=== PATIENT | female | born 1955 | race Asian ===

== ENCOUNTER 2021-04-06 11:43 | Emergency (ER) | payer OTHER ==
[~2021-04-06] VITALS: Ht 152.4 cm; Wt 62.6 kg
[2021-04-06 11:50] VITALS: BP 148/98
--- NOTE | 2021-04-06 12:21 | NUR ---
PT AMBULATED TO ER BED 8.
--- NOTE | 2021-04-06 12:29 | NUR ---
DR. JAMES AT PT BEDSIDE FOR FURTHER EVALUATION.
--- NOTE | 2021-04-06 12:42 | NUR ---
PT TAKEN TO CT VIA RDESEAN.
--- NOTE | 2021-04-06 12:48 | NUR ---
PT TAKEN TO ER BED 8 VIA SUYAPA.
[2021-04-06] MEDS ORDERED: FLONAS NS (13:19)
[2021-04-06] MEDS ORDERED: AMOX1TAB8 PO (13:19)
--- NOTE | 2021-04-06 13:39 | NUR ---
66 Y/O F BIB DAUGHTER FROM HOME, C/O NEW ONSET OF FARRELL, CONSISTENT NOSEBLEEDS FOR THE PAST FEW YEARS (UNABLE TO SPECIFY) AND NAUSEA. DENIES VOMITING AND DIARRHEA; SKIN IS PINK/WARM/DRY; AAOX4 WITH EVEN AND STEADY GAIT; LUNGS CLEAR BL; HR EVEN AND REGULAR; PT DENIES ANY FEVER, CP, SOB, OR COUGH AT THIS TIME; PATIENT STATES PAIN OF 7/10 AT THIS TIME; PATIENT POSITIONED FOR COMFORT; HOB ELEVATED; BEDRAILS UP X2; BED DOWN. ER MD MADE AWARE OF PT STATUS. PMH: NOSEBLEEDS, HTN, HYPERLIPIDEMIA NKA MED: FLONASE
--- NOTE | 2021-04-06 13:39 | NUR ---
Patient discharged with v/s stable. Written and verbal after care instructions given and explained. Patient alert, oriented and verbalized understanding of instructions. Ambulatory with DAUGHTER to car. All questions addressed prior to discharge. ID band removed. Patient advised to follow up with PMD. Rx of FLUTICASONE, AMOXICILLIN/POTASSIUM CLAV given. Patient educated on indication of medication including possible reaction and side effects. Opportunity to ask questions provided and answered.
[2021-04-06 13:40] VITALS: BP 148/98
== END 2021-04-06 13:40 | disposition home or self-care (01) ==
LOC: MED 11:43
DX: J32.0 Chronic maxillary sinusitis (principal); E03.9 Hypothyroidism, unspecified; Z79.899 Other long term (current) drug therapy; Z98.890 Other specified postprocedural states
CPT/HCPCS: 70450; 99284

== ENCOUNTER 2022-06-24 16:43 | Emergency (ER) | payer MEDICARE, OTHER ==
[~2022-06-24] VITALS: Ht 147.3 cm; Wt 61.2 kg
[~2022-06-24 16:43] MED LIST: AMOX1TAB8 PO; FLONAS NS
[2022-06-24 17:06] VITALS: BP 166/86
[2022-06-24] MEDS ORDERED: ACET-10509 PO (19:03)
[2022-06-24 19:10] VITALS: BP 166/86
--- NOTE | 2022-06-24 19:10 | NUR ---
Patient discharged with v/s stable. Written and verbal after care instructions given and explained. Patient verbalized understanding. Ambulatory with steady gait. All questions addressed prior to discharge. Advised to follow up with PMD. dx by roxie
== END 2022-06-24 19:10 | disposition home or self-care (01) ==
LOC: MED 16:43
DX: S00.01XA Abrasion of scalp, initial encounter (principal); M54.2 Cervicalgia; M25.511 Pain in right shoulder; M25.512 Pain in left shoulder; M54.50 Low back pain, unspecified; I10 Essential (primary) hypertension; E03.9 Hypothyroidism, unspecified; E78.00 Pure hypercholesterolemia, unspecified; Z79.2 Long term (current) use of antibiotics; Z79.899 Other long term (current) drug therapy; W01.198A Fall on same level from slipping, tripping and stumbling with subsequent striking against other object, initial encounter; Y92.009 Unspecified place in unspecified non-institutional (private) residence as the place of occurrence of the external cause; Y93.89 Activity, other specified; Y99.8 Other external cause status
CPT/HCPCS: 70450; 72100; 72125; 72170; 73030; 99284

== ENCOUNTER 2022-12-22 00:45 | Emergency (ER) | payer MEDICARE, OTHER ==
[~2022-12-22] VITALS: Ht 147.3 cm; Wt 63.0 kg
[~2022-12-22 00:45] MED LIST changes: +ACET-10509 PO
[2022-12-22 00:58] VITALS: BP 146/80; PULSE 51; RESP 18; TEMP 97.5; O2SAT 100
--- NOTE | 2022-12-22 01:03 | NUR ---
PT TO THE BATHROOM FOR URINE COLLECTION.
--- NOTE | 2022-12-22 03:27 | NUR ---
pt ambulated to bed 2 with family member.
--- NOTE | 2022-12-22 03:30 | NUR ---
67yo f with cc of 10/10 epigastric pain that radiates that radiates to the back associated with nausea and vomiting. denies allergy. denies trauma. pmhx: htn, high cholesterol.
--- NOTE | 2022-12-22 03:30 | NUR ---
pt resting on bed, A/Ox4. not in distress. on monitor. placed on moderate high back rest. call light within reach, pt instructed on how to use call light, pt returned demonstration. all needs met at this time. bed locked in lowest position, side rails x2 for safety
--- NOTE | 2022-12-22 03:33 | NUR ---
ermd at bedside
[2022-12-22] MEDS ORDERED: DICYCLOMINE HCL LIQUID 20 MG, ALUMINUM HYD/MAG/SIMETHICONE 30 ML, LIDOCAINE VISCOUS 2% ... PO ONE ×3 (03:40)
[2022-12-22 03:54] LABS: APPEARANCE,URINE CLEAR (CLEAR); BILIRUBIN,URINE NEGATIVE (NEGATIVE); BLOOD, URINE NEGATIVE (NEGATIVE); COLOR,URINE YELLOW (YELLOW); LEUKOCYTE ESTERASE ,URINE TRACE (NEGATIVE); NITRITE, URINE NEGATIVE (NEGATIVE); PH,URINE 6.5 (5.0-9.0); UGLUCOSE NEGATIVE (NEGATIVE)
[2022-12-22 03:58] LABS: BASOPHILS % (AUTO) 0.2 % (0.0-2.0); EOSINOPHILS % (AUTO) 0.2 % (0.0-4.0); HEMATOCRIT 40.9 % (36-48); HEMOGLOBIN 13.8 g/dL (12.0-16.0); LYMPHOCYTES # (AUTO) 0.8 K/uL (2.5-16.5); LYMPHOCYTES % (AUTO) 8.9 % (20.5-51.1); MEAN CORPUSCULAR HEMOGLOBIN 31 pg (27-31); MEAN CORPUSCULAR HGB CONC 34 g/dL (33-37); MEAN CORPUSCULAR VOLUME 92.7 fL (80-94); MONOCYTES # (AUTO) 0.4 K/uL (0.8-1.0); MONOCYTES % (AUTO) 4.2 % (1.7-9.3); NEUTROPHILS # (AUTO) 7.4 K/uL (1.8-7.7); NEUTROPHILS % (AUTO) 86.5 % (42.2-75.2); PLATELET COUNT (AUTO) 186 K/uL (140-450); RED BLOOD CELL COUNT(AUTO) 4.42 MIL/uL (4.20-5.40); WHITE BLOOD COUNT (AUTO) 8.5 K/uL (4.8-10.8)
[2022-12-22] MEDS ORDERED: ALUMINUM HYD/MAG/SIMETHICONE 30 ML UDC ONE (03:58)
[2022-12-22] MEDS ORDERED: DICYCLOMINE HCL LIQUID 10 MG/5 ML UDC ONE (03:58)
[2022-12-22 04:14] LABS: ALBUMIN 4.3 g/dL (3.4-5.0); ANION GAP 14.7 (8-16); CARBON DIOXIDE 26.4 mmol/L (21-32); CHLORIDE 102 mmol/L (98-107); CREATININE 0.6 mg/dL (0.6-1.3); GFR ARICAN-AMERICAN 128 mL/min (>90); GLUCOSE 139 mg/dL (74-106); LIPASE 174 U/L (73-393); POTASSIUM 4.1 mmol/L (3.5-5.1); SODIUM SERUM 139 mmol/L (136-145); TOTAL BILIRUBIN 0.8 mg/dL (0.0-1.0); UREA NITROGEN, BLOOD 17 mg/dL (7-18)
[2022-12-22 05:12] LABS: RBC,URINE 0-5 /HPF (0-5)
[2022-12-22 05:20] LABS: ASPARTATE AMINOTRANSFERASE 358 U/L (15-37)
[2022-12-22 05:47] VITALS: TEMP 97.6
--- NOTE | 2022-12-22 07:19 | NUR ---
Pt report given to jose eduardo kumar. Transfer of care at this time. jose eduardo kumar verbalized understanding and no further question
--- NOTE | 2022-12-22 07:19 | NUR ---
REPORT RECEIVED FROM ABHI MARTINEZ. ASSUMED CARE AT THIS TIME
--- NOTE | 2022-12-22 07:32 | NUR ---
Note lacey in EDM - 12/22/22 at 0733 by PHSEP pt awake and at rest in supine. denies pain at this time. on reading instructor. bed at lowest position, bed rails upx2. call light within reach. mom at bedside
--- NOTE | 2022-12-22 07:33 | NUR ---
pt awake and at rest in supine. denies pain at this time. on price clerk. bed at lowest position, bed rails upx2. call light within reach. daughter at bedside
[2022-12-22 07:39] VITALS: O2SAT 100
[2022-12-22] MEDS ORDERED: ACET-8905 PO (08:20)
[2022-12-22 08:39] VITALS: BP 142/70; PULSE 56; RESP 17; O2SAT 98
[2022-12-24] MEDS ORDERED: CIPR500T4 PO (17:36)
== END 2022-12-22 08:39 | disposition home or self-care (01) ==
LOC: MED 00:45
DX: R10.13 Epigastric pain (principal); I11.0 Hypertensive heart disease with heart failure; E03.9 Hypothyroidism, unspecified; Z79.899 Other long term (current) drug therapy
CPT/HCPCS: 36415; 80053; 81001; 83690; 84484; 85025; 87086; 93005; 99285